=== PATIENT | male | born 1950 | race Caucasian/White ===

== ENCOUNTER 2017-09-07 12:19 | Inpatient (IN) | payer MEDICARE, MEDICAID ==
[~2017-09-07] VITALS: Ht 175.3 cm; Wt 74.5 kg
[~2017-09-07 12:19] MED LIST: ASPIRIN EC81 MG PO; BISOPROLOL FUMAR5 MG PO; CARVEDILOL12.5 MG PO; LISINOPRIL10 MG PO; METHOCARBAMOL750 MG NG; PRAVASTATIN SOD20 MG PO
--- NOTE | 2017-09-07 17:02 | NUR ---
PATIENT ARRIVES TO CCU FROM ER ON STRETCHER AT 1530. PT ABLE TO AMBULATE INTO BATHROOM TO VOID AND HAVE LIQUID DIARRHEA BM. PT STATES THAT WHENEVER HE HAS BEEN EATING OR DRINKING LATELY, THINGS HAVE BEEN RUNNING STRAIGHT THROUGH HIM. PT NOTED TO HAVE A DISTENDED ABDOMEN, AND STATES HIS ABDOMEN DOES FEEL LARGER THAN NORMAL. PT NOTES THAT HE STARTED FEELING BAD ABOUT 15 DAYS AGO, AND EVEN FELT BAD ENOUGH TO STOP SMOKING 9 DAYS AGO. PT HAD A NEAR SYNCOPAL EPISODE BEFORE COMING INTO THE ER. PT ABLE TO WALK AND IS STEADY ON FEET, BUT DOES SEEM TIRED AND WEAK. PT NOTED TO BE GRABBING HIS EPIGASTRIC AREA FREQUENTLY AND IS VISIBLY UNCOMFORTABLE. PT TO HAVE 2 UNITS OF PRBCs INFUSED. NEW IV STARTED IN LEFT FOREARM. PT VOIDED 125 ML CONCENTRATED URINE AND A SAMPLE SENT TO LAB. PT ALSO NOTED TO HAVE A PRODUCTIVE SOUNDING COUGH THAT HE STATES HE HAS HAD SINCE STOPPING SMOKING. CONTINUE TO MONITOR.
--- NOTE | 2017-09-07 17:10 | NUR ---
1ST UNIT OF PRBCs STARTED AT 1652. PT TOLERATING WELL. PT TO RECEIVE 20 MG IV LASIX AFTER EACH UNIT OF BLOOD. PT TO HAVE FONG CATHETER INSERTED AND AGREEABLE TO THIS. CONTINUE TO MONITOR.
--- NOTE | 2017-09-07 18:21 | NUR ---
PATIENT TAKEN DOWN TO XRAY DEPARTMENT FOR KUB. PT TOLERATED WELL. PT NOW RESTING BACK IN BED. DR. JARAMILLO IN TO SEE PATIENT AND PLAN IS FOR PATIENT TO HAVE A SCOPE TOMORROW AFTER HAVING A BOWEL PREP TONIGHT. PT STILL HAVING ABDOMINAL PAIN BUT CURRENTLY DENIES THE NEED FOR PAIN MEDICATION. LAST BP 129/64 (79). HEART RATE 60-70s. CONTINUE TO MONITOR.
--- NOTE | 2017-09-07 18:58 | NUR ---
PATIENT RESTING IN BED. PT SIPPING ON CHICKEN BROTH AND ALSO STARTING BOWEL PREP. PT IS HAVING LIQUID CHOCOLATE BROWN COLORED STOOL THAT IS VERY FOUL SMELLING. PT STATES, "WHEN I DRINK OR EAT SOMETHING, IT RUNS RIGHT THROUGH ME." PATIENT ALSO STATES, "I'VE LOST ALMOST 100 LBS IN THE LAST 9 MONTHS OR SO. THE LAST TIME I SAW MY DOCTOR HE TOLD ME NOT TO LOOSE ANY MORE WEIGHT, BUT THEN I LOST 9 MORE LBS IN JUST TWO DAYS." PT STILL HAVING ABDOMINAL PAIN ACROSS HIS MID EPIGASTRIC AREA. CONTINUE TO MONITOR CLOSELY. PT GIVEN 20 MG IV LASIX AFTER THE FIRST UNIT OF BLOOD. 2ND UNIT STARTED AT 1850.
--- NOTE | 2017-09-07 20:00 | NUR ---
RECEIVED REPORT AT 1900. FOUND PT IN BED AWAKE WATCHING TV. POST BLOOD V/S TAKEN AT 1930, THEY WERE WDL. PT HAS TOLERABLE PAIN SO FAR. I EDUCATED PT TO LET US KNOW IF HE NEEDS ANYTHING FOR PAIN AND N/V. STOOL X1 200ML, LIGHT BROWN, LIQUID, URINE 450ML SO FAR. PT IS DOING WELL GETTING ON HIS OWN TO BSC. WILL CONTINUE TO MONITOR.
--- NOTE | 2017-09-07 22:00 | NUR ---
AT 2099 2ND UNIT OF RPB'S STOPPED. BP AT 2099 WAS 117/52. AT 213 BP WAS 96/49 (61), RASH WAS CALLED ABOUT HOLDING COREG 12.5MG PO DOSE. DOSE IS TO BE HELD UNTIL PT HR IS >100. AT 2200 RASH WAS CALLED AGAIN DUE TO BP 81/35 (46). 500ML NS BOULS WAS ORDERED. ALL UPPER LOBES ARE CLEAR, LOWER LOBES HAVE SLIGHT WHEEZING PRESENT. ABD SOUNDS ARE HYPERACTIVE, NO PERIPHERAL EDEMA NOTED, RADIAL AND PEDIS PULSES ARE +2, PAIN IS STILL TOLERABLE FOR PT. URINE OUTPUT IS SUFFICIENT. WILL CONTINUE TO MONITOR BP AND HR AND LUNG LOBES, WELL I&O.
--- NOTE | 2017-09-08 | NUR ---
V/S AT THIS TIME ARE WDL. ALL LOBES ARE CLEAR AT THIS TIME. ABD SOUNDS ARE STILL HYPERACTIVE. URINE OUTPUT IS STILL VERY ADEQUATE. 1ST BOTTLE OF BOWEL PREP IS DONE, PT IS WORKING ON THE 2ND BOTTLE.
--- NOTE | 2017-09-08 02:00 | NUR ---
LAB HAS DONE BLOOD DRAW, PT IS AWAKE SITTING UP IN BED. V/S ARE WDL, PT DRANK 400ML OF THE SECOND BOWEL PREP BOTTLE, LAST BM WAS LIGHT BROWN AND LIQUID. PT IS NPO NOW AND IV FLUIDS HAVE BEEN INCREASED TO 75ML/HR PER MD ORDER.
--- NOTE | 2017-09-08 04:00 | NUR ---
PT IS AWAKE IN BED. V/S OVERALL ARE WDL. ALL LOBES ARE CLEAR, ABD SOUNDS ARE STILL HYPERACTIVE, NO PERIPHERAL EDEMA NOTED, PAIN IS TOLERABLE PER PT. MOUTH SWABS WERE GIVEN.
--- NOTE | 2017-09-08 06:12 | NUR ---
AT START OF SHIFT 2100 DOSE OF COREG HAD TO BE HELD DUE TO HR 60, AND SBP'S IN THE 90'S. MD LAUREANO WAS CALLED. SBP AT AROUND 2200 WAS IN THE 80'S. MD LAUREANO WAS CALLED AND A 500ML NS BOLUS WAS GIVEN. BP'S HAVE BEEN WDL SINCE. URINE OUTPUT IS ADEQUATE, PT HAS BEEN NPO SINCE 0200. PT CONTINUES TO HAVE LIQUID VERY LIGHT BROWN BM'S, PT MANAGED TO DRINK 1.5 BOTTLES OF THE BOWEL CLEANSE BY 0200. ALL LOBES ARE CLEAR, ABD SOUNDS ARE HYPERACTIVE, PAIN IS STILL TOLERABLE SO FAR STATED BY PT. HG AT 0200 WAS 9.3. NO NEW CONCERNS AT THIS TIME.
--- NOTE | 2017-09-08 07:56 | NUR ---
RECEIVED PHONE CALL FROM [id number] ANGY, RECEIVED PERMISION FROM PT TO TALK WITH HER. ALL QUESTIONS ANSWERED AT THIS TIME. LAB HERE TO OBTAIN SAMPLE AT THIS TIME. PT C/O STOMACH CRAMPING, AND HE IS SCHEDULED FOR UPPER AND LOWER SCOPE TODAY.
[2017-09-08] MEDS ORDERED: FUROSEMIDE40 MG PO (08:19)
--- NOTE | 2017-09-08 09:31 | NUR ---
OR WILL COME TO GET PT SOON. PT PLACED ON STRAIGHT TUBING, AND FLOWING WELL. CHART COMPLETE. PT VOIDED.
--- NOTE | 2017-09-08 09:40 | NUR ---
PT TO THE OR AT THIS TIME, PT ABLE TO TRANSFER HIMSELF TO THE STREACHER.
--- NOTE | 2017-09-08 11:22 | NUR ---
09/08/17 1122 Mary Garcia 1117 PATIENT ARRRIVES TO PACU SLEEPING, DOES NOT OPEN EYES TO VERBAL COMMAND, BUT DOES MOVE ARM. RESP EVEN AND UNLABORED, OXYMASK AT 5.
--- NOTE | 2017-09-08 12:00 | NUR ---
PT RETURNED FROM PACU AT THIS TIME. PT IS ABLE TO BE TRANSFERED TO THE M/S UNIT IF DR LAUREANO APPROVES AND HE IS ALLOWED A LOW FIBER DIET.
--- NOTE | 2017-09-08 12:23 | NUR ---
PT SITTING AT THE SIDE OF THE BED AT THIS TIME, HE IS TRYING TO EAT LUNCH AT THIS TIME. HIS SON IS AT THE BEDSIDE. THE SON HAD QUESTION AND ALL QUESTIONS ANSWERED.
--- NOTE | 2017-09-08 13:05 | NUR ---
REPORT CALLED TO M/S ALL QUESTIONS ANSWERED AT THIS TIME. PT TRANSPORTED VIA CHAIR, PT FAMILY WITH US DURING THE TRANSFER. ALL PT BELONGS SENT WITH PT AND FAMILY AWARE. M/S STAFF PRESENT WHEN PT WENT TO ROOM.
--- NOTE | 2017-09-08 13:15 | NUR ---
RECIEVED REPORT FROM CCU NURSE. PATIENT TRANSFERRED OVER IN CHAIR. IVF INFUSING AT 15CC/HR. ASSISTED PATIENT IN ORDERING A LOW FIBER LUNCH. PROVIDED PATIENT WITH READING MATERIAL REGARDING LOW FIBER DIET. COFFEE DELIVERED. PATIENT DENIES FURTHER NEEDS. FAMILY IN ROOM. CALL LIGHT IN REACH.
--- NOTE | 2017-09-08 13:37 | NUR ---
PATIENT RESTING IN CHAIR. C/O ABDOMINAL PAIN MOSTLY IN HIS LLQ. STATES IT IS VERY TENDER TO TOUCH. ABD SOFT, BS ACTIVE. LUNGS ARE CLEAR->DIMINISHED. HR REGULAR. NO EDEMA. PAIN MEDICATION ADMINISTERED PER MAR. PATIENT DENIES FURTHER NEEDS. CALL LIGHT IN REACH.
--- NOTE | 2017-09-08 13:39 | NUR ---
PT SITTING ON SIDE OF BED, SON VISITING IN . PT REQUESTED I NOT COME IN , I WILL HONOR HIS REQUEST.
--- NOTE | 2017-09-08 14:20 | NUR ---
PATIENT STATES HIS ABDOMINAL PAIN IS "MUCH BETTER." PAIN DOES NOT INTENSIFY WITH AMBULATION. PATIENT UP TO BATHROOM WITH SBA, VOIDED, BACK TO CHAIR. DENIES NEEDS. MEAL TRAY REMOVED. PATIENT ATE 1/2 A TURKEY SANDWICH.
--- NOTE | 2017-09-08 15:24 | NUR ---
PATIENT RESTING UP IN CHAIR. C/O BLURRY VISION THAT LASTED A FEW MOMENTS ALONG WITH SOME LIGHTHEADEDNESS. NOTIFIED MD. VS OBTAINED. NO CHANGES IN TELE. PATIENT ASKING FOR NICOTINE LOZENGES.
--- NOTE | 2017-09-08 15:32 | EKG ---
[facility] [address] [place], [place] [address] Signed Normal sinus rhythm Left bundle branch block Abnormal ECG When compared with ECG of 07-SEP-2017 12:34, (Unconfirmed) No significant change was found Confirmed by IMAN SMITH MD ([id number]) on 09/08/2017 3:32:46 PM Electronically Signed By: IMAN SMITH MD 09/08/17 1532 PATIENT NAME: DARIEN ENRIQUEZ Electrocardiogram DATE OF : 50 PHYSICIAN: IMAN SMITH MD REPORT #: [id number] REPORT IS CONFIDENTIAL AND NOT TO BE RELEASED WITHOUT AUTHORIZATION
[2017-09-08] MEDS ORDERED: CYANOCOBAL1000 MCG/M IM (16:15)
[2017-09-08] MEDS ORDERED: LISINOPRIL20 MG PO (16:16)
--- NOTE | 2017-09-08 16:17 | NUR ---
MED REC COMPLETE WITH SAFEWAY REFILL HISTORY AND PATIENT INTERVIEW.
--- NOTE | 2017-09-08 16:32 | NUR ---
ASSISTED PATIENT TO BATHROOM TO VOID. WARM BLANKET APPLIED. DENIES FURTHER NEEDS. CALL LIGHT IN REACH.
--- NOTE | 2017-09-08 18:27 | NUR ---
PATIENT UP TO BATHROOM. VOIDED. BACK TO CHAIR, TALKING ON PHONE. DENIES NEEDS, CALL LIGHT IN REACH.
--- NOTE | 2017-09-08 21:41 | NUR ---
RECEIVED REPORT AT 1900, FOUND PT SITTING UP IN CHAIR WATCHING TV. PT STATED AT THAT TIME THAT HIS PAIN WAS TLERABLE. NO NEW CONCERNS AT THIS TIME.
--- NOTE | 2017-09-08 22:00 | NUR ---
V/S ARE WDL, PT NEEDED DILAUDED 0.5MG IV ONCE THIS SHIFT. IT WAS GIVEN VIA PUMP OVER 4MIN. PT TOLERATED IT WELL. ABD SOUNDS ARE NORMAL ACTIVE, LAST HG LAB DRAW AT 1999 WAS 8.9. NO PERIPHERAL EDEMA NOTED, ALL LOBES ARE CLEAR. NO NEW CONCERNS SO FAR.
--- NOTE | 2017-09-09 | NUR ---
PT IS SLEEPING AT THIS TIME.
--- NOTE | 2017-09-09 02:00 | NUR ---
LAB DRAW FOR HG DONE VIA IV LINE. PT IS TRYING TO SLEEP AGAIN. NO MORE BM'S SO FAR.
--- NOTE | 2017-09-09 05:25 | NUR ---
V/S SO FAR ARE WDL, PAIN IS WELL CONTROLLED, PT HAD NO BM THIS SHIFT, URINE OUTPUT IS ADEQUATE, PT TOLERATED DINNER LAST NIGHT WELL. ABD SOUNDS ARE NORMAL ACTIVE. HG AT 0200 WAS 8.2. ALL LOBES ARE CLEAR. NO NEW CONCERNS AT THIS TIME.
--- NOTE | 2017-09-09 07:22 | EKG ---
[facility] [address] [facility] [place] [address] Signed Normal sinus rhythm Left bundle branch block Abnormal ECG When compared with ECG of 23-JUL-2016 11:59, T wave inversion no longer evident in Inferior leads T wave inversion less evident in Lateral leads Confirmed by IMAN SMITH MD ([id number]) on 09/09/2017 7:21:48 AM Electronically Signed By: IMAN SMITH MD 09/09/17 0722 PATIENT NAME: DARIEN ENRIQUEZ ANIL Electrocardiogram DATE OF : 50 PHYSICIAN: IMAN SMITH MD REPORT #: [id number] REPORT IS CONFIDENTIAL AND NOT TO BE RELEASED WITHOUT AUTHORIZATION
--- NOTE | 2017-09-09 07:42 | NUR ---
BEDSIDE REPORT RECEIVED FROM YOLANDA. ASSUMING PATIENT CARE AT THIS TIME. PATIENT FOUND IN BED AWAKE, DENIES ANY PAIN AT THIS TIME. NO NAUSEA. IV SITES PATENT. PATIENT IS ON ROOM AIR. CALL LIGHT IN REACH.
--- NOTE | 2017-09-09 08:50 | NUR ---
IN TO ROOM TO ASSESS PATIENT. PATIENT REPORTED MILD ABD PAIN THAT HE SAID IS TOLERABLE FOR HIM AT THIS TIME NO NEED FOR PAIN MEDS. DENIED NAUSEA. PATIENT TOLERATED LOW FIBER DIET WELL. IV SITE PATENT, MORNING MEDS ADMINISTERED. BRUISES NOTED ON THE UPPER EXTREMITIES FROM BLOOD DRAW. LUNGS ARE CLEAR, ACTIVE BOWEL TONE. CALL LIGHT IN REACH. WILL CONTINUE TO MONITOR.
[2017-09-09] MEDS ORDERED: NICORETTE4 M2 BUCCAL (09:31)
--- NOTE | 2017-09-09 11:25 | NUR ---
DR JARAMILLO WAS IN TO RE-EVALUATE PATIENT AND DSICUSS PLAN OF CARE. AGREED WITH DR SMITH TO D/C PATIENT HOME TODAY.
--- NOTE | 2017-09-09 11:56 | NUR ---
PATIENT HAS SUBMITTED RECORDS TO ESTABLISH CARE WITH ROBERTO NIEVES AT [facility]. CONTACTED LORENA AGUIAR AT CLINIC ASKING HER TO FOLLOW THIS PATIENT TO HELP GET ESTABLISHED.
--- NOTE | 2017-09-15 14:11 | CONS ---
[facility] [address] [place], [place] [address] Signed DATE OF CONSULTATION: 09/07/2017 CONSULTING PHYSICIAN: Dr. Marleen Jaramillo. PROBLEM: Anemia (hematocrit 22 with some diarrhea). HISTORY: This 67-year-old white man has been admitted by Dr. Kyle to the Intensive Care Unit, having had a near syncopal episode today. He was found to have a hematocrit of 22.7 after his arrival soon at the emergency room and evaluation by Dr. Gonzalez. He showed no evidence of cardiac ischemia or true cardiac problem, but his profound anemia was considered likely contributory to his near syncopal episode. In discussion with him, it appears that he has had lightheadedness and near syncopal episodes for the past 3 weeks. Since his arrival to the Intensive Care Unit, he has been initiated on transfusion therapy as well as liquids and already ordered for a MiraLAX tight bowel prep, anticipating endoscopic evaluation. Of note, the patient has had no hematemesis. He has had no gross blood per rectum nor his stool does test heme positive as exceptionally foul smelling and chocolate milk in appearance. PAST MEDICAL HISTORY: Does include cardiac evaluation and monitoring, known to have an ejection fraction of about 40% based on evaluation previously. The patient has noted a weight loss of about 9 pounds in the past 2 weeks. He has had endoscopic evaluation performed at [facility] and [facility] in the past, though the details of this are not known entirely, but I suspect it was related to anemia. MEDICATIONS: His medications at admission include: 1. Aspirin 81 mg daily. 2. Carvedilol 12.5 mg p.o. b.i.d. 3. Bisoprolol 5 mg p.o. daily. 4. Lisinopril 10 mg daily. ALLERGIES: He has no known drug allergies. Electronically Signed By: MARLEEN JARAMILLO MD 09/15/17 1411 PATIENT NAME: DARIEN ENRIQUEZ CONSULTATION DATE OF : 50 REPORT #: [id number] PHYSICIAN: MARLEEN JARAMILLO MD PCP: NO PRIMARY CARE PHYSICIAN REPORT IS CONFIDENTIAL AND NOT TO BE RELEASED WITHOUT AUTHORIZATION [facility] [address] [place], [place] [address] Signed SOCIAL HISTORY: He does not smoke, having quit two years ago. He does not use alcohol. He lives alone. He is long retired. REVIEW OF SYSTEMS: He has had no chest pain and no actual TIA type symptoms. Denies any hematemesis. Does have vague lower abdominal pain, not focal, however. PHYSICAL EXAMINATION: GENERAL: Pleasant white man, who does not look to have diaphoresis or in severe distress at this time. VITAL SIGNS: Temperature is 97.5, pulse 83, blood pressure 124/65, respirations 18, room air oximetry shows 98% saturation. HEENT: Mucous membranes are quite dry. Trachea is midline. He has no tracheal deviation or jugular venous distention or cervical adenopathy. CHEST: Clear. HEART: Regular. ABDOMEN: Nondistended. There is no focal tenderness and no distention. A very foul smelling liquid type stool was noted, not red or melenic in any way, but it smells as though it should have blood in it. IMAGING: A chest x-ray performed earlier shows no evidence of cardiomegaly. No evidence of effusion. A plain abdominal x-ray has been ordered and is pending. LABORATORY DATA: Show a white count of 3.8, hematocrit 22.7, platelets 296,000. CT shows normal electrolytes, including a creatinine of 1.00. Albumin is low at 3.4. A CEA test has been obtained, but not yet available. Urinalysis was essentially normal, specific gravity of 1.016. ASSESSMENT: The patient has significant anemia, hematocrit of 22. Transfusion therapy is underway. I would certainly recommend upper endoscopy to assess for an upper gastrointestinal source of bleeding, but a bowel prep is reasonably undertaken at this time as well. I believe him to be quite stable to allow for that. This would allow upper endoscopy and colonoscopy tomorrow. If things should worsen or he should "cut loose" regarding bleeding, then endoscopic evaluation could be undertaken in a more timely way tonight if needed. The risks of bleeding, infection, and perforation related to endoscopic evaluation was reviewed with him. He understands and agrees to proceed. Electronically Signed By: MARLEEN JARAMILLO MD 09/15/17 1411 PATIENT NAME: DARIEN ENRIQUEZ CONSULTATION DATE OF : 50 REPORT #: [id number] PHYSICIAN: MARLEEN JARAMILLO MD PCP: NO PRIMARY CARE PHYSICIAN REPORT IS CONFIDENTIAL AND NOT TO BE RELEASED WITHOUT AUTHORIZATION [facility] [address] [facility] [place], [place] [address] Signed Marleen Jaramillo MD JM/MODL /[id number] cc: Iman Kyle MD Copies: IMAN KYLE MD ~ Electronically Signed By: MARLEEN JARAMILLO MD 09/15/17 1411 PATIENT NAME: ENRIQUEZDARIEN ANIL CONSULTATION DATE OF : 50 REPORT #: [id number] PHYSICIAN: MARLEEN JARAMILLO MD PCP: NO PRIMARY CARE PHYSICIAN REPORT IS CONFIDENTIAL AND NOT TO BE RELEASED WITHOUT AUTHORIZATION
--- NOTE | 2017-09-15 14:11 | OR ---
[facility] [address] [place], [place] [address] Signed DATE OF OPERATION: 09/07/2017 SURGEON: Marleen Jaramillo MD PREOPERATIVE DIAGNOSES: 1. Anemia (hematocrit 22) with heme-positive stools, no evidence of hematemesis. 2. Left-sided abdominal pain. POSTOPERATIVE DIAGNOSES: 1. Mild chronic duodenitis without sign of bleeding. Consideration for celiac disease (biopsies pending). 2. 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 PROCEDURES: 1. Esophagogastroduodenoscopy with biopsy. 2. Total colonoscopy to cecum with hemostatic control with hemoclips of probable arteriovenous malformation. ANESTHESIA: Intravenous sedation, propofol infusion. Marilee Marshall CRNA. INDICATION: This 67-year-old white man was admitted by Iman Kyle MD, on 09/07/2017, with significant anemia, hematocrit of 22, and near syncopal episode and several similar such episodes in the preceding 3 weeks. He has had no of hematemesis. He has undergone endoscopy at other institutions for bleeding in the past. Those records are still being sought. He did not have hematochezia or melena per se though liquid stool, which is medium brown in color is heme-positive. He was admitted at this time to undergo upper endoscopy and colonoscopy having undergone a bowel prep yesterday. The risks of bleeding, infection, and perforation related upper endoscopy and colonoscopy were reviewed in detail. He understands and wished to proceed. FINDINGS: On upper endoscopy, there was no lesion to account for anemia. He did have chronic duodenitis and mucosal changes were suggestive though not diagnostic of celiac disease. Biopsies were obtained for that. On colonoscopy, the prep was good. Complete colonoscopy was undertaken to the cecum without question. There was a lesion at 70 cm, which was suggestive though not diagnostic of arteriovenous malformation with continued oozing. This was secured with Electronically Signed By: MARLEEN JARAMILLO MD 09/15/17 1411 PATIENT NAME: DARIEN ENRIQUEZ OPERATIVE REPORT DATE OF : 50 REPORT #: [id number] PHYSICIAN: MARLEEN JARAMILLO MD PCP: NO PRIMARY CARE PHYSICIAN REPORT IS CONFIDENTIAL AND NOT TO BE RELEASED WITHOUT AUTHORIZATION [facility] [address] [place], [place] [address] Signed hemoclips. The remaining colon was normal otherwise. DESCRIPTION OF PROCEDURE: The patient was brought to the endoscopy suite and given topical Hurricaine spray, hypopharyngeal anesthesia and placed in lateral decubitus position. A bite block was placed. He was given intravenous sedation by the senior national account manager with full cardiopulmonary monitoring. An Olympus video upper endoscope was passed in the hypopharynx. The vocal cords and hypopharyngeal tissues were normal. Scope was advanced to the esophagus throughout its length, it was normal. There were no varices, stricture, neoplasm, or Ashby's epithelium. Scope was advanced to the stomach, which was insufflated with air. There is certainly no blood or lesion of the stomach of any concern. The pylorus was normal and scope was passed through into the duodenum. The duodenum immediately was noted to be somewhat edematous and full with a mucosal pattern suggestive though not diagnostic of celiac disease. Biopsies were obtained. The scope was carefully withdrawn. Retroflexed view undertaken showing no Isaias ulcers or anything of that sort. The scope was straightened, withdrawn to the distal esophagus, which again was affirmed to be normal. Withdrawal of scope showed no lesions of any concern. Plans were then made for colonoscopy. Digital rectal examination was normal. Liquid stool that had egressed was not bloody by any means. An Olympus video colonoscope was passed in the rectum and manipulated throughout the colon. The scope was ultimately advanced to the proximal ascending colon. With various manipulations, the scope could finally enter into the cecum. A biopsy forceps was used to pull up the cecal mucosa initially, which did leave some leiva there, but ultimately the cecum was fully intubated. There was no cecal mass or neoplasm of any sort. The areas of grasping of the cecal mucosa for a "pull-up" were noted however. The scope was carefully withdrawn. The ileocecal valve appeared normal. Careful withdrawal of scope showed no abnormality until approximately 70 cm from the anal verge where there was area of fresh blood and a bit of clot. Initially, it was concerning that this may represent residual blood, but considering there was no blood anywhere else in the colon. Close inspection was undertaken and irrigation undertaken. It appeared that this may represent a bleeding source. It may well represent an arteriovenous malformation. Photographs were taken. Irrigation was undertaken more fully and there were 2 separate areas, one flat and abraded in appearance, though not typical of scope trauma, another with some adherent clot. Both areas were secured with hemoclips completely. Cautery was not used. The scope was then withdrawn and complete examination from the remaining left colon, sigmoid, and rectum showed no lesion to account for bleeding. The scope was removed. The patient was taken to recovery room in good condition. CONCLUDING DIAGNOSIS: Bleeding suspicious to have originated from left colon at 70 cm from bleeding Electronically Signed By: MARLEEN JARAMILLO MD 09/15/17 1411 PATIENT NAME: DARIEN ENRIQUEZ ANIL OPERATIVE REPORT DATE OF : 50 REPORT #: [id number] PHYSICIAN: MARLEEN JARAMILLO MD PCP: NO PRIMARY CARE PHYSICIAN REPORT IS CONFIDENTIAL AND NOT TO BE RELEASED WITHOUT AUTHORIZATION [facility] [address] [place], [place] [address] Signed arteriovenous malformation, now secured with hemoclips. PLAN: He will return to the ongoing care of Iman Kyle. A low-fiber diet will be initiated and continue monitoring undertaken. MD AYAZ Rebolledo/KEITHL /[id number] cc: Iman Kyle MD Copies: IMAN KYLE MD ~ Electronically Signed By: MARLEEN JARAMILLO MD 09/15/17 1411 PATIENT NAME: DARIEN ENRIQUEZ OPERATIVE REPORT DATE OF : 50 REPORT #: [id number] PHYSICIAN: MARLEEN JARAMILLO MD PCP: NO PRIMARY CARE PHYSICIAN REPORT IS CONFIDENTIAL AND NOT TO BE RELEASED WITHOUT AUTHORIZATION
== END 2017-09-09 12:35 | disposition home or self-care (01) | DRG 378 ==
LOC: ED 12:19 → CCU 15:11 → MS 15:11
PROVIDERS: ADMIT Internal Medicine
PROC: 0W3P8ZZ Control Bleeding in Gastrointestinal Tract, Via Natural or Artificial Opening Endoscopic (ICD-10-PCS; principal; 2017-09-07)
PROC: 0DB98ZX Excision of Duodenum, Via Natural or Artificial Opening Endoscopic, Diagnostic (ICD-10-PCS; principal; 2017-09-07)
PROC: 30233N1 Transfusion of Nonautologous Red Blood Cells into Peripheral Vein, Percutaneous Approach (ICD-10-PCS; 2017-09-07)
DX: K55.21 Angiodysplasia of colon with hemorrhage (principal); D62 Acute posthemorrhagic anemia; K29.80 Duodenitis without bleeding; I25.10 Atherosclerotic heart disease of native coronary artery without angina pectoris; Z95.1 Presence of aortocoronary bypass graft; Z79.82 Long term (current) use of aspirin; I10 Essential (primary) hypertension; R63.4 Abnormal weight loss; E78.00 Pure hypercholesterolemia, unspecified; F17.200 Nicotine dependence, unspecified, uncomplicated
CPT/HCPCS: 36415; 36430; 71045; 74019; 80048; 80053; 81001; 82378; 84484; 85018; 85025; 86850; 86900; 86901; 86920; 87045; 87046; 87205; 88305; 93005; 93010; 99407; J1170; J2405; J7030; P9016